=== PATIENT | female | born 1945 | race African-American/Black ===

== ENCOUNTER → 2017-05-15 | Day surgery (SDC) | payer OTHER ==
--- NOTE | 2017-05-16 16:15 | PATH ---
Surgical Pathology Report Patient Name: AMY DUONG [facility]. Rec. #: [id number] /Age/Gender: 1945 (Age: 72) / F Account: [id number] Location: [facility] RADIOLOGY U Taken: 05/15/2017 Received: 05/15/2017 Reported: 05/16/2017 Physicians: Andrea Olsen M.D. Specimen(s) Received A: RIGHT BREAST SITE 1 12:00 RETROAREOLAR BIOPSY B: RIGHT BREAST SITE 2 12:00 RETROAREOLAR BIOPSY Clinical History Ultrasound findings: Probably benign Final Diagnosis A. 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 B. 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 Electronically Signed Awilda Pruett M.D. Gross Description A. Received in formalin, labeled "right 12:00 retro biopsy site 1," are 6 durand-yellow, cylindrical portions of fibroadipose tissue ranging from 0.5-2.0 cm. in length and averaging 0.2 cm. in diameter. The specimen is submitted in toto in one cassette. B. Received in formalin, labeled "right 12:00 retro biopsy site 2," are 4 durand-yellow, cylindrical portions of fibroadipose tissue ranging from 0.7-1.0 cm. in length and averaging 0.2 cm. in diameter. The specimen is submitted in toto in one cassette. Time to formalin fixation: 2 minutes Total formalin fixation time: Approximately 9 hours. 05/15/2017 saudi05/15/2017
== END | disposition home or self-care (01) ==
LOC: FRADUS-SUR 08:17
PROVIDERS: ATTEND Surgery
PROC: 0HBU3ZX Excision of Left Breast, Percutaneous Approach, Diagnostic (ICD-10-PCS; principal; 2017-05-15)
DX: D24.1 Benign neoplasm of right breast (principal); N60.31 Fibrosclerosis of right breast; N64.89 Other specified disorders of breast; N63 Unspecified lump in breast
CPT/HCPCS: 19083; 19084; 87899; 88305-TC; A4648; G0206-TC

== ENCOUNTER 2023-07-09 07:41 | Inpatient (IN) | payer OTHER ==
[2023-07-09 08:25] LABS: BASO % 0.8 % (0-2.0); EOS % 0.8 % (0-4.5); HEMATOCRIT 39.9 % (32.4-45.2); HEMOGLOBIN 13.4 GM/dL (10.7-15.3); LYMPH % 10.4 % (8-40); MCH 28.5 pg (25.7-33.7); MCHC 33.6 g/dl (32.0-36.0); MEAN CELL VOLUME 84.8 fl (80-96); MEAN PLT VOLUME 7.9 fl (7.5-11.1); MONO % 3.7 % (3.8-10.2); NEUT % 84.3 % (42.8-82.8); PLATELET COUNT 241 10^3/uL (134-434); RBC 4.71 M/mm3 (3.60-5.2); RDW 14.5 % (11.6-15.6); RETICULOCYTES 0.89 % (0.5-1.5); WHITE BLOOD COUNT 10.4 K/mm3 (4.0-10.0)
[2023-07-09 08:31] LABS: INR 0.97 (0.83-1.09); PROTHROMBIN TIME (PATIENT) 11.2 SEC (9.7-13.0)
[2023-07-09 08:34] LABS: ACTIVATED PTT 39.2 SECONDS (25.2-36.5)
[2023-07-09 08:48] LABS: POTASSIUM 4.6 mmol/L (3.5-5.1)
[2023-07-09 08:51] LABS: ALBUMIN 3.9 g/dl (3.4-5.0); BLOOD UREA NITROGEN 28.4 mg/dL (7-18); CALCIUM 9.8 mg/dL (8.5-10.1)
[2023-07-09 08:54] LABS: CREATININE 1.9 mg/dL (0.55-1.3)
[2023-07-09 08:56] LABS: BILIRUBIN,TOTAL 0.3 mg/dL (0.2-1); TOT PROT 7.3 g/dl (6.4-8.2)
[2023-07-09] MEDS ORDERED: FAMOTIDINE 20 MG/50 ML IVPB 20 MG/50 ML MG IVPB ONE ×2 (09:24→09:55)
[2023-07-09] MEDS ORDERED: ACETAMINOPHEN 1000 MG/100 ML BAG IVPB ONE (09:24)
[2023-07-09] MEDS ORDERED: ACETAMINOPHEN INJECTION 100 ML IVPB ONE (09:55)
[2023-07-09 12:35] LABS: HEMATOCRIT 37.8 % (32.4-45.2); HEMOGLOBIN 12.3 GM/dL (10.7-15.3); MCH 27.9 pg (25.7-33.7); MCHC 32.5 g/dl (32.0-36.0); MEAN CELL VOLUME 85.9 fl (80-96); MEAN PLT VOLUME 7.8 fl (7.5-11.1); PLATELET COUNT 213 10^3/uL (134-434); RDW 14.3 % (11.6-15.6); WHITE BLOOD COUNT 11.2 K/mm3 (4.0-10.0)
[2023-07-09 14:08] LABS: EPI CELLS 8 /uL (0-25.1); HYALINE CASTS 0 /uL (0-3.1); URINE APPEARANCE CLEAR; URINE BACTERIA 212 /uL (0-1359); URINE BILIRUBIN NEGATIVE (NEGATIVE); URINE COLOR YELLOW; URINE GLUCOSE (UA) 3+ (NEGATIVE); URINE KETONE NEGATIVE (NEGATIVE); URINE LEUK ESTERASE 1+ (NEGATIVE); URINE NITRITE NEGATIVE (NEGATIVE); URINE PROTEIN 1+ (NEGATIVE); URINE RBC 93 /uL (0-23.9); URINE UROBILINOGEN 0.2 mg/dL (0.2-1.0); URINE WBC 133 /uL (0-25.8)
[2023-07-09] MEDS: D5-1/2NS+20 MEQ KCL - 20 MEQ/1,000 ML INFUS.BAG IV SCH (18:48)
[2023-07-09 19:33] LABS: HEMATOCRIT 38.2 % (32.4-45.2); HEMOGLOBIN 12.8 GM/dL (10.7-15.3); MCH 28.1 pg (25.7-33.7); MCHC 33.4 g/dl (32.0-36.0); MEAN CELL VOLUME 84.1 fl (80-96); MEAN PLT VOLUME 7.6 fl (7.5-11.1); PLATELET COUNT 229 10^3/uL (134-434); RBC 4.54 M/mm3 (3.60-5.2); RDW 14.2 % (11.6-15.6)
[2023-07-09 20:19] LABS: IRON SERUM 29 ug/dL (50-175)
[2023-07-09 20:21] LABS: TOTAL IRON BINDING CAPACITY 282 ug/dL (250-450)
[2023-07-09] MEDS: ATORVASTATIN CA 10 MG TABLET (FP) PO SCH (21:55)
[2023-07-09] MEDS: PANTOPRAZOLE SODIUM 40 MG VIAL IVPUSH SCH (21:56)
[2023-07-09] MEDS ORDERED: ACETAMINOPHEN 1000 MG/100 ML BAG IVPB PRN (22:06)
[2023-07-09 23:51] VITALS: BMI 20.6
[2023-07-10] MEDS ORDERED: PNEUMOC 20-VAL CONJ-DIP CRM/PF 0.5 ML SYRINGE IM ONE (10:00)
[2023-07-10] MEDS ORDERED: FLU VACCINE (FLULAVAL) PF 60 MCG/0.5 ML SYRINGE 2023-2024 IM ONE (10:00)
[2023-07-10 10:08] LABS: BASO % 0.8 % (0-2.0); HEMATOCRIT 38.2 % (32.4-45.2); HEMOGLOBIN 12.4 GM/dL (10.7-15.3); LYMPH % 17.1 % (8-40); MCH 27.9 pg (25.7-33.7); MCHC 32.3 g/dl (32.0-36.0); MEAN CELL VOLUME 86.3 fl (80-96); MEAN PLT VOLUME 7.8 fl (7.5-11.1); MONO % 7.5 % (3.8-10.2); NEUT % 73.6 % (42.8-82.8); PLATELET COUNT 226 10^3/uL (134-434); RBC 4.43 M/mm3 (3.60-5.2); RDW 14.1 % (11.6-15.6); WHITE BLOOD COUNT 10.4 K/mm3 (4.0-10.0)
[2023-07-10 10:20] LABS: POTASSIUM 4.2 mmol/L (3.5-5.1)
[2023-07-10] MEDS: amLODIPine BESYLATE 10 MG TABLET (FP) PO SCH (10:24)
[2023-07-10] MEDS: PANTOPRAZOLE SODIUM 40 MG VIAL IVPUSH SCH ×2 (10:27→22:15)
[2023-07-10 10:30] LABS: CALCIUM 9.3 mg/dL (8.5-10.1)
[2023-07-10 10:31] LABS: ALBUMIN 3.4 g/dl (3.4-5.0); BLOOD UREA NITROGEN 25.3 mg/dL (7-18); MAGNESIUM 2.3 mg/dL (1.8-2.4)
[2023-07-10 10:34] LABS: CREATININE 1.8 mg/dL (0.55-1.3)
[2023-07-10 10:35] LABS: BILIRUBIN,TOTAL 0.7 mg/dL (0.2-1); TOT PROT 6.5 g/dl (6.4-8.2)
[2023-07-10] MEDS: D5-1/2NS+20 MEQ KCL - 20 MEQ/1,000 ML INFUS.BAG IV SCH (14:50)
[2023-07-10] MEDS: ATORVASTATIN CA 10 MG TABLET (FP) PO SCH (22:15)
[2023-07-11 05:04] VITALS: RESP 18
[2023-07-11 08:31] LABS: HEMOGLOBIN 12.1 GM/dL (10.7-15.3); MCH 28.4 pg (25.7-33.7); MCHC 33.6 g/dl (32.0-36.0); MEAN CELL VOLUME 84.6 fl (80-96); MEAN PLT VOLUME 7.9 fl (7.5-11.1); PLATELET COUNT 206 10^3/uL (134-434); RBC 4.26 M/mm3 (3.60-5.2); RDW 14.2 % (11.6-15.6)
[2023-07-11 08:58] LABS: POTASSIUM 4.3 mmol/L (3.5-5.1)
[2023-07-11 09:05] LABS: ALBUMIN 3.1 g/dl (3.4-5.0); MAGNESIUM 2.3 mg/dL (1.8-2.4)
[2023-07-11 09:07] LABS: BLOOD UREA NITROGEN 26.2 mg/dL (7-18)
[2023-07-11 09:08] LABS: CREATININE 1.9 mg/dL (0.55-1.3)
[2023-07-11 09:10] LABS: BILIRUBIN,TOTAL 0.6 mg/dL (0.2-1)
[2023-07-11] MEDS: PANTOPRAZOLE 40 MG TABLET PO SCH (09:49)
[2023-07-11] MEDS: amLODIPine BESYLATE 10 MG TABLET (FP) PO SCH (09:50)
[2023-07-11] MEDS: ATORVASTATIN CA 10 MG TABLET (FP) PO SCH (22:21)
[2023-07-12] MEDS: PANTOPRAZOLE 40 MG TABLET PO SCH (10:03)
[2023-07-12] MEDS: amLODIPine BESYLATE 10 MG TABLET (FP) PO SCH (10:03)
[2023-07-12 10:07] VITALS: BP 137/61; PULSE 72; TEMP 97.6
== END 2023-07-12 17:40 | disposition home or self-care (01) | DRG 379 ==
LOC: JER 07:41 → JERBED 13:00 → OBSVTOIN 13:00 → J6S 20:46
PROVIDERS: ADMIT Family Medicine; ATTEND Family Medicine
DX: K92.2 Gastrointestinal hemorrhage, unspecified (principal); I12.9 Hypertensive chronic kidney disease with stage 1 through stage 4 chronic kidney disease, or unspecified chronic kidney disease; N18.9 Chronic kidney disease, unspecified; E11.22 Type 2 diabetes mellitus with diabetic chronic kidney disease; K57.90 Diverticulosis of intestine, part unspecified, without perforation or abscess without bleeding; E78.00 Pure hypercholesterolemia, unspecified; Z85.528 Personal history of other malignant neoplasm of kidney; Z90.5 Acquired absence of kidney; Z85.3 Personal history of malignant neoplasm of breast
CPT/HCPCS: 36415; 71045-TC-FY; 74176-TC; 80053; 81003; 82272; 82728; 82962; 83540; 83550; 83735; 84443; 84484; 85025; 85027; 85045; 85610; 85730; 86850; 86900; 86901; 90677; 90686; 93005; 93010; 97116-GP; 97162-GP; 99285-25; G0008